=== PATIENT | female | born 1945 | race Caucasian/White ===

== ENCOUNTER → 2017-05-17 | Outpatient (CLI) | payer OTHER | END | disposition home or self-care (01) | LOC: CFH 07:18 | PROVIDERS: ATTEND Family Medicine | DX: Z12.31 Encounter for screening mammogram for malignant neoplasm of breast (principal); Z80.3 Family history of malignant neoplasm of breast | CPT/HCPCS: G0202 ==

== ENCOUNTER 2018-05-19 08:08 | Inpatient (IN) | payer OTHER ==
[~2018-05-19] VITALS: Ht 160 cm; Wt 114.3 kg
[2018-05-19] MEDS ORDERED: ONDANSETRON 2MG/ML, 2ML IVPush ONE (08:30)
[2018-05-19] MEDS ORDERED: SODIUM CHLORIDE FLUSH 10ML SYR IVF ONE (08:30)
[2018-05-19] MEDS ORDERED: SODIUM CHLORIDE 0.9% 1,000ML IVBOLUS ONE (08:30)
[2018-05-19] MEDS ORDERED: MECLIZINE CHEWABLE 25 MG TAB PO ONE (08:30)
[2018-05-19 08:51] LABS: BASOPHILS # (AUTO) 0.02 x10^3/uL (0-0.1); BASOPHILS % (AUTO) 0 % (0-1); EOSINOPHILS # (AUTO) 0.05 x10^3/uL (0-0.4); EOSINOPHILS % (AUTO) 1 % (1-7); LYMPHOCYTES # (AUTO) 1.53 x10^3/uL (1-3.4); LYMPHOCYTES % (AUTO) 21 % (22-44); MD NO; MEAN CORPUSCULAR HEMOGLOBIN 30.8 pg (27.0-34.8); MEAN CORPUSCULAR HGB CONC 34.2 g/dL (32.4-35.8); MEAN CORPUSCULAR VOLUME 90.1 fL (80-100); MEAN PLATELET VOLUME 8.8 fL (7.4-10.4); MONOCYTES # (AUTO) 0.26 x10^3/uL (0.2-0.8); MONOCYTES % (AUTO) 4 % (2-9); NEUTROPHILS # (AUTO) 5.58 x10^3/uL (1.8-6.8); NEUTROPHILS % (AUTO) 75 % (42-75); PLATELET COUNT 168 x10^3/uL (130-400); RED BLOOD COUNT 4.42 x10^6/uL (3.82-5.3)
[2018-05-19 09:04] LABS: ALBUMIN 3.8 g/dL (3.4-5.0); ANION GAP 7 mmol/L (5-15); CALCIUM 9.4 mg/dL (8.5-10.1); CHLORIDE 105 mmol/L (98-107)
[2018-05-19] MEDS ORDERED: MECLIZINE CHEWABLE 25 MG TAB ONE (09:30)
[2018-05-19] MEDS ORDERED: ONDANSETRON 2MG/ML, 2ML ONE (09:30)
[2018-05-19] MEDS ORDERED: ASPIRIN 325 MG TABLET PO STA (09:33)
[2018-05-19] MEDS ORDERED: ASPIRIN 325 MG TABLET ONE (09:38)
[2018-05-19] MEDS ORDERED: ASPI-496 PO (10:17)
[2018-05-19] MEDS ORDERED: LOSA100T6 PO (10:17)
[2018-05-19] MEDS ORDERED: HYDR25TA6 PO (10:17)
[2018-05-19] MEDS ORDERED: METO25TA35 PO (10:17)
[2018-05-19] MEDS ORDERED: ENALAPRILAT 1.25 MG/ML, 2ML IVPush PRN (11:00)
[2018-05-19] MEDS ORDERED: BISACODYL 10 MG SUPP PR PRN (11:00)
[2018-05-19] MEDS ORDERED: LABETALOL 5MG/ML, 20ML IVPush PRN (11:00)
[2018-05-19] MEDS ORDERED: ONDANSETRON ODT 4 MG PO PRN (11:00)
[2018-05-19] MEDS ORDERED: DOCUSATE 100 MG CAPSULE PO PRN (11:00)
[2018-05-19] MEDS ORDERED: ONDANSETRON 2MG/ML, 2ML IVPush PRN (11:00)
[2018-05-19] MEDS ORDERED: ACETAMINOPHEN 325 MG TABLET PO PRN (11:00)
[2018-05-19] MEDS: SODIUM CHLORIDE 0.9% 1,000 ML IV SCH (12:14)
[2018-05-19 12:22] VITALS: BP 171/75
[2018-05-19 13:38] VITALS: BP 143/61
[2018-05-19 20:20] VITALS: BP 190/80
[2018-05-19] MEDS: METOPROLOL TARTRATE 50 MG TABLET PO SCH (21:07)
[2018-05-19 22:10] VITALS: BP 162/62
[2018-05-20 00:57] VITALS: BP 156/79
[2018-05-20] MEDS: SODIUM CHLORIDE 0.9% 1,000 ML IV SCH (01:08)
[2018-05-20 05:29] LABS: BASOPHILS # (AUTO) 0.01 x10^3/uL (0-0.1); BASOPHILS % (AUTO) 0 % (0-1); EOSINOPHILS # (AUTO) 0.05 x10^3/uL (0-0.4); EOSINOPHILS % (AUTO) 1 % (1-7); LYMPHOCYTES # (AUTO) 1.86 x10^3/uL (1-3.4); LYMPHOCYTES % (AUTO) 26 % (22-44); MD NO; MEAN CORPUSCULAR HEMOGLOBIN 31.4 pg (27.0-34.8); MEAN CORPUSCULAR HGB CONC 34.3 g/dL (32.4-35.8); MEAN CORPUSCULAR VOLUME 91.5 fL (80-100); MONOCYTES # (AUTO) 0.44 x10^3/uL (0.2-0.8); MONOCYTES % (AUTO) 6 % (2-9); NEUTROPHILS # (AUTO) 4.73 x10^3/uL (1.8-6.8); NEUTROPHILS % (AUTO) 67 % (42-75); PLATELET COUNT 166 x10^3/uL (130-400); RED BLOOD COUNT 3.99 x10^6/uL (3.82-5.3); RED CELL DISTRIBUTION WIDTH 14.1 % (9.6-15.2)
[2018-05-20 05:42] LABS: CALCIUM 9.1 mg/dL (8.5-10.1); CHLORIDE 108 mmol/L (98-107)
[2018-05-20 05:56] LABS: ANION GAP 8 mmol/L (5-15); CHOL/HDL RATIO 6.1; CHOLESTEROL, TOTAL 292 mg/dL (140-239); CREATININE 0.98 mg/dL (0.55-1.02); HDL CHOL % 16 % (28-40); HDL CHOLESTEROL (DIRECT) 48 mg/dL (40-60); LDL CHOLESTEROL,CALCULATED 191 mg/dL (54-169); TRIGLYCERIDES 265 mg/dL (50-200); VLDL CHOLESTEROL 53 mg/dL (0-25)
[2018-05-20 05:57] LABS: THYROID STIMULATING HORMONE 0.629 mIU/L (0.358-3.740)
[2018-05-20] MEDS ORDERED: ASPIRIN 81 MG TABLET EC PO SCH (06:00)
[2018-05-20 07:00] VITALS: BP 180/84
[2018-05-20] MEDS: METOPROLOL TARTRATE 50 MG TABLET PO SCH (08:34)
[2018-05-20] MEDS ORDERED: LOSARTAN 50MG TABLET PO SCH (09:00)
[2018-05-20] MEDS ORDERED: METOPROLOL TARTRATE 50 MG TABLET PO SCH (09:00)
[2018-05-20] MEDS ORDERED: SENNA/DOCUSATE TABLET PO SCH (09:00)
[2018-05-20] MEDS ORDERED: AMLODIPINE 5 MG TABLET PO SCH (09:30)
[2018-05-20] MEDS ORDERED: OXYBUTYNIN CHLORIDE 5 MG TABLET PO SCH (09:30)
[2018-05-20] MEDS ORDERED: GADOBUTROL 10 MMOL/10 ML VIAL ONE (10:37)
[2018-05-20] MEDS ORDERED: OXYB5TAB7 PO (11:10)
[2018-05-20] MEDS ORDERED: AMLO5TAB2 PO (11:10)
== END 2018-05-20 13:00 | disposition home or self-care (01) | DRG 683 ==
LOC: ED 09:36 → EDIP 09:37 → ED 09:50 → 4EST 11:58 → DCLOUNGE 05-20 12:33
PROVIDERS: ADMIT Internal Medicine; ATTEND Internal Medicine
DX: N17.9 Acute kidney failure, unspecified (principal); G45.9 Transient cerebral ischemic attack, unspecified; Z68.41 Body mass index [BMI] 40.0-44.9, adult; E66.01 Morbid (severe) obesity due to excess calories; H55.00 Unspecified nystagmus; I10 Essential (primary) hypertension; R35.0 Frequency of micturition; I16.0 Hypertensive urgency; Z79.82 Long term (current) use of aspirin; Z79.899 Other long term (current) drug therapy; Z82.49 Family history of ischemic heart disease and other diseases of the circulatory system; Z83.3 Family history of diabetes mellitus; Z86.73 Personal history of transient ischemic attack (TIA), and cerebral infarction without residual deficits
CPT/HCPCS: 36415; 70450; 70553; 80048; 80061; 82040; 84443; 85025; 93005; 93306; 93880; 96361; 96374; 99285; A9585; J2405; J7030